=== PATIENT | female | born 1955 ===

== ENCOUNTER → 2017-05-17 | Outpatient (CLI) | payer OTHER ==
[~2017-05-17] MED LIST: AMLO10TA2 PO; LIDOCAINE 1% / SOD BICARB 8.4% 20 ML VIAL. IJ ONE; LIDOCAINE 2%/EPI 1:100,000 20 ML VIAL. IJ ONE; LISI-334 PO
--- NOTE | 2017-05-17 12:24 | RAD ---
EXAM: 1. Stereotactically guided biopsy of left breast microcalcifications. 2. Digital postclip left mammography. HISTORY: Indeterminate left breast microcalcifications. Stereotactic biopsy is requested. FINDINGS: The procedure along with its risks and benefits were explained to the patient. She agreed to proceed. A timeout procedure was performed. The patient's prior mammography was reviewed. The target calcifications superolaterally in the left breast were targeted stereotactically. The overlying skin was sterilely prepped and infiltrated with 1% lidocaine for local anesthesia. The deeper tissues were infiltrated with 2% lidocaine with epinephrine for local anesthesia and hemostasis. Under stereotactic guidance, a 9 gauge vacuum-assisted core biopsy system was advanced to the target calcifications. 10 core specimens were obtained. A specimen radiograph was obtained and demonstrates the targeted calcifications within the specimen. A postbiopsy clip was placed. Instrumentation was withdrawn and pressure held to hemostasis. There were no immediate complications. Digital left mammography was obtained in CC and MLO projections and interpreted on a dedicated mammographic workstation. These demonstrate the postbiopsy clip slightly superior to the target calcifications. The clip likely retracted somewhat along the biopsy tract. IMPRESSION: 1. Successful stereotactically guided left breast biopsy. 2. The postbiopsy clip corresponds with the target calcifications.
--- NOTE | 2017-05-19 15:00 | PATHOLOGY ---
PATHOLOGY REPORT * * * * * * * * FINAL DIAGNOSIS: Breast tissue, left breast needle biopsies: - Small ancient fibroadenoma, with associated calcifications. COMMENT: There is no evidence of malignancy. (JPM:; 05/19/2017) REPORT ELECTRONICALLY SIGNED BY: Jose Edwards M.D. DATE/TIME: 05/19/2017 14:59 * * * * * * * * GROSS PATHOLOGY: Received in formalin labeled "Carmel Sood, left breast calcifications," are multiple needle cores of yellow-noriega fibrofatty tissue measuring 3.4 x 2.3 x 0.6 cm in aggregate dimensions. Also received is a plastic cassette containing multiple cores of yellow-noriega fibrofatty tissue measuring 3.5 x 2.5 x 1.2 cm in aggregate dimensions. The tissue in the cassette is transferred to cassette A3, and the remaining tissue is submitted in its entirety in cassette A1 and A2. The cold ischemic time is 3 minutes. The total formalin fixation time is 11 hours and 8 minutes. (TSD; 05/17/2017) INITIAL CPT CODE(S): A; 90639 Professional services [place] [address] Technical services performed by [facility] at [address] [place] [address], [address], [place] [address]. Diaz, [facility] Radiology [phone] SPECIMEN(S) RECEIVED: A.Left breast calcifications CLINICAL HISTORY: Abnormal mammogram, left breast calcifications PATIENT: CARMEL SOOD /AGE: 309/03/1955 (Age: 61) PATIENT #: [id number] ALT CASE #: SPECIMEN COLLECTION DATE: 05/17/2017 SPECIMEN RECEIVED DATE: 05/17/2017 [facility] - [address] [place] [address] - PHONE: [phone] * * * END OF REPORT * * *
== END | disposition home or self-care (01) ==
LOC: MAMMO 09:29 → EDUNIT# 09:30
PROVIDERS: ATTEND Surgery
DX: R92.1 Mammographic calcification found on diagnostic imaging of breast (principal)
CPT/HCPCS: 19085; 77022; C1713; G0206; J3490; 88305; 77065